=== PATIENT | male | born 1990 | race American Indian/Alaskan Native ===

== ENCOUNTER 2021-09-23 03:55 | Emergency (ER) | payer SELFPAY ==
[2021-09-23 03:59] VITALS: BP 137/96
--- NOTE | 2021-09-23 05:00 | Emergency Department Report ---
ED General Adult HPI - General Chief complaint: Medical Clearance Stated complaint: MED REFILL Time Seen by Provider: 09/23/21 04:55 Source: patient Mode of arrival: Ambulatory Limitations: No Limitations - History of Present Illness Initial comments: Patient is a 31-year-old -[place] male with history of epilepsy who presents for medication refill for Depakote. Last dose was 2 days ago. Patient denies fevers or chills no nausea no vomiting no aura. Patient is alert oriented x3 patient is tolerating p.o. intake patient appears well well-no urished well-hydrated with no acute distress. Patient denies other complaint. Patient states he recently moved from [place] 2 weeks ago and he ran out of his medication 2 days ago. - Related Data Previous Rx's Medication Instructions Recorded Last Taken Type Divalproex ER [Depakote ER] 500 mg PO BID #60 tablet 09/23/21 Unknown Rx Allergies Allergy/AdvReac Type Severity Reaction Status Date / Time No Known Allergies Allergy Unverified 09/23/21 03:59 ED Review of Systems ROS: Stated complaint: MED REFILL Other details as noted in HPI Constitutional: denies: chills, fever Eyes: denies: eye pain, eye discharge, vision change ENT: denies: ear pain, throat pain Respiratory: denies: cough, shortness of breath, wheezing Cardiovascular: denies: chest pain, palpitations Endocrine: no symptoms reported Gastrointestinal: denies: abdominal pain, nausea, diarrhea Genitourinary: denies: urgency, dysuria Musculoskeletal: denies: back pain, joint swelling, arthralgia Skin: denies: rash, lesions Neurological: denies: headache, weakness, paresthesias Psychiatric: denies: anxiety, depression Hematological/Lymphatic: denies: easy bleeding, easy bruising ED Past Medical Hx - Past Medical History Previous Medical History?: Yes Hx Seizures: Yes - Surgical History Past Surgical History?: No - Medications Home Medications: Home Medications Medication Instructions Recorded Confirmed Last Taken Type Divalproex ER [Depakote ER] 500 mg PO BID #60 tablet 09/23/21 Unknown Rx ED Physical Exam - General Limitations: No Limitations General appearance: alert, in no apparent distress - Head Head exam: Present: atraumatic, normocephalic - Eye Eye exam: Present: normal appearance, PERRL - ENT ENT exam: Present: mucous membranes moist - Neck Neck exam: Present: normal inspection - Respiratory Respiratory exam: Present: normal lung sounds bilaterally. Absent: wheezes - Cardiovascular Cardiovascular Exam: Present: regular rate, normal rhythm. Absent: systolic murmur, diastolic murmur, rubs, gallop - GI/Abdominal GI/Abdominal exam: Present: soft, normal bowel sounds. Absent: distended, tenderness - Rectal Rectal exam: Present: deferred - Extremities Exam Extremities exam: Present: normal inspection, full ROM. Absent: tenderness - Back Exam Back exam: Present: normal inspection, full ROM. Absent: CVA tenderness (R), CVA tenderness (L) - Neurological Exam Neurological exam: Present: alert, oriented X3, CN II-XII intact, normal gait, reflexes normal. Absent: motor sensory deficit - Expanded Neurological Exam Expanded Patient oriented to: Present: person, place, time Speech: Present: fluid speech Cranial nerves: EOM's Intact: Normal Cerebellar function: Finger to Nose: Normal, Heel to Bell: Normal, Romberg: Normal Motor strength exam: RUE: 5, LUE: 5, RLE: 5, LLE: 5 Best Eye Response ([place]): (4) open spontaneously Best Motor Response ([place]): (6) obeys commands Best Verbal Response (Cathleen): (5) oriented Cathleen Total: 15 - Psychiatric Psychiatric exam: Present: normal affect, normal mood - Skin Skin exam: Present: warm, dry, intact, normal color. Absent: rash ED Course Vital Signs 09/23/21 03:58 Temperature 98 F Pulse Rate 71 Respiratory 18 Rate Blood Pressure 137/96 [Right] O2 Sat by Pulse 100 Oximetry ED Medical Decision Making - Medical Decision Making Patient request medication refill and referral to primary care. Plan refill medication as prescribed patient has previous prescription bottle. Patient will follow up with primary care doctor in 2 to 3 days. Patient will return to emergency department as needed. Patient DC to home in stable condition at this time with no acute distress. Critical care attestation.: If time is entered above; I have spent that time in minutes in the direct care of this critically ill patient, excluding procedure time. ED Disposition Clinical Impression: Medication refill Disposition: 01 HOME / SELF CARE / HOMELESS Is pt being admited?: No Does the pt Need Aspirin: No Condition: Stable Instructions: Epilepsy, [id number], Epilepsy Additional Instructions: Take medications as prescribed, follow-up with your doctor in 2 to 3 days. Prescriptions: Divalproex ER [Depakote ER] 500 mg PO BID #60 tablet Referrals: JUSTIN GAMA MD [Staff Physician] - 3-5 Days Forms: Work/School Release Form(ED) Time of Disposition: 05:03
== END 2021-09-23 06:05 | disposition home or self-care (01) ==
LOC: ED 03:55
DX: G40.909 Epilepsy, unspecified, not intractable, without status epilepticus (principal); Z76.0 Encounter for issue of repeat prescription
CPT/HCPCS: 99282

== ENCOUNTER → 2021-11-02 | Emergency (ER) | payer SELFPAY | LOC: ED 02:52 | DX: Z76.0 Encounter for issue of repeat prescription (principal); Z53.21 Procedure and treatment not carried out due to patient leaving prior to being seen by health care provider ==

== ENCOUNTER 2021-12-09 17:02 | Emergency (ER) | payer SELFPAY ==
[2021-12-09 17:38] VITALS: BP 142/88
--- NOTE | 2021-12-09 18:37 | Emergency Department Report ---
ED General Adult HPI - General Chief complaint: Medical Clearance Stated complaint: MEDICATION REFILL Source: patient Mode of arrival: Ambulatory Limitations: No Limitations - History of Present Illness Initial comments: 31-year-old male presents to the ED questing a refill for medication for seizure. Patient states that he has been out of divalproex er 500mg Bid for two days . Patients denies any seizure activity at present. Patient states that her just receive new insurance and will make appointment with primary care doctor as soon as possible. Patient is alert and oriented x3. No acute distress noted. No ill appearance noted. - Related Data Previous Rx's Medication Instructions Recorded Last Taken Type Divalproex ER [Depakote ER] 500 mg PO BID #60 tablet 09/23/21 Unknown Rx Divalproex ER [Depakote ER] 500 mg PO BID 30 Days #60 tablet 12/09/21 Unknown Rx Allergies Allergy/AdvReac Type Severity Reaction Status Date / Time No Known Allergies Allergy Verified 12/09/21 17:38 ED Review of Systems ROS: Stated complaint: MEDICATION REFILL Other details as noted in HPI Constitutional: denies: chills, fever Eyes: denies: eye pain, eye discharge, vision change ENT: denies: ear pain, throat pain Respiratory: denies: cough, shortness of breath, wheezing Cardiovascular: denies: chest pain, palpitations Endocrine: no symptoms reported Gastrointestinal: denies: abdominal pain, nausea, diarrhea Genitourinary: denies: urgency, dysuria Musculoskeletal: denies: back pain, joint swelling, arthralgia Skin: denies: rash, lesions Neurological: denies: headache, weakness, paresthesias Psychiatric: denies: anxiety, depression Hematological/Lymphatic: denies: easy bleeding, easy bruising ED Past Medical Hx - Past Medical History Previous Medical History?: Yes Hx Seizures: Yes - Medications Home Medications: Home Medications Medication Instructions Recorded Confirmed Last Taken Type Divalproex ER [Depakote ER] 500 mg PO BID #60 tablet 09/23/21 Unknown Rx Divalproex ER [Depakote ER] 500 mg PO BID 30 Days #60 tablet 12/09/21 Unknown Rx ED Physical Exam - General Limitations: No Limitations General appearance: alert, in no apparent distress - Head Head exam: Present: atraumatic, normocephalic - Eye Eye exam: Present: normal appearance - ENT ENT exam: Present: mucous membranes moist - Neck Neck exam: Present: normal inspection - Respiratory Respiratory exam: Present: normal lung sounds bilaterally. Absent: respiratory distress - Cardiovascular Cardiovascular Exam: Present: regular rate, normal rhythm. Absent: systolic murmur, diastolic murmur, rubs, gallop - GI/Abdominal GI/Abdominal exam: Present: soft, normal bowel sounds - Rectal Rectal exam: Present: deferred - Extremities Exam Extremities exam: Present: normal inspection - Back Exam Back exam: Present: normal inspection - Neurological Exam Neurological exam: Present: alert, oriented X3 - Psychiatric Psychiatric exam: Present: normal affect, normal mood - Skin Skin exam: Present: warm, dry, intact, normal color. Absent: rash ED Course Vital Signs 12/09/21 17:36 Temperature 98.0 F Pulse Rate 59 L Respiratory 18 Rate Blood Pressure 142/88 O2 Sat by Pulse 98 Oximetry ED Medical Decision Making - Medical Decision Making 31-year-old male presents to the ED questing a refill for medication for seizure. Patient states that he has been out of divalproex er 500mg Bid for two days . Patients denies any seizure activity at present. Patient states that her just receive new insurance and will make appointment with primary care doctor as soon as possible. Patient is alert and oriented x3. No acute distress noted. No ill appearance noted. Rechecked the patient is resting quietly quietly and comfortable and feeling better. I discussed the results of diagnostic study, my clinical impression and the plan for further treatment with the patient. Patient agrees with plan and discharge at this present time. All question addressed. I have given the patient instruction regarding a diagnosis ,expectation ,follow- up and return precaution. I explained to the patient that emergent condition may arise and to return to the ED for new worsen and any new persisting condition. I have explained the importance of following up with the primary care physician or referral physician listed below has instructed. The patient verbalized understanding of discharge instruction. Critical care attestation.: If time is entered above; I have spent that time in minutes in the direct care of this critically ill patient, excluding procedure time. ED Disposition Clinical Impression: Medication refill, Normal physical examination Disposition: HOME / SELF CARE / HOMELESS Is pt being admited?: No Does the pt Need Aspirin: No Condition: Stable Instructions: Epilepsy Additional Instructions: Take medication as prescribed Follow-up with primary care doctor Prescriptions: Divalproex ER [Depakote ER] 500 mg PO BID 30 Days #60 tablet Referrals: [facility] [Provider Group] - 3-5 Days Forms: Work/School Release Form(ED)
== END 2021-12-09 19:40 | disposition home or self-care (01) ==
LOC: ED 17:02
DX: Z00.00 Encounter for general adult medical examination without abnormal findings (principal); Z76.0 Encounter for issue of repeat prescription; Z79.899 Other long term (current) drug therapy
CPT/HCPCS: 99282

== ENCOUNTER 2022-02-15 12:37 | Emergency (ER) | payer OTHER ==
--- NOTE | 2022-02-15 14:53 | Emergency Department Report ---
HPI - General Chief Complaint: Medical Clearance PUI?: No Time Seen by Provider: 02/15/22 14:49 - HPI HPI: 32-year-old -[place] male presents to the emergency room requesting a refill on his Depakote. Patient states he is making appointment to his neurologist for refills. Denies any recent seizure activity in over a year. ED Past Medical Hx - Past Medical History Previous Medical History?: Yes Hx Seizures: Yes Additional medical history: epilepsy - Medications Home Medications: Home Medications Medication Instructions Recorded Confirmed Last Taken Type Divalproex ER [Depakote ER] 500 mg PO BID 30 Days #60 tablet 12/09/21 Unknown Rx Divalproex ER [Depakote ER] 500 mg PO BID #60 tablet 02/15/22 Unknown Rx ED Review of Systems ROS: Stated complaint: MEDS Other details as noted in HPI Comment: All other systems reviewed and negative Physical Exam - Physical Exam Vital Signs: Vital Signs 02/15/22 13:48 Temperature 97.6 F Pulse Rate 56 L Respiratory 18 Rate Blood Pressure 136/92 O2 Sat by Pulse 100 Oximetry Physical Exam: General: Awake, appropriately interactive, no acute distress. Neck: Supple. Full range of motion intact. Cardiovascular: Normal peripheral perfusion. Pulmonary: No respiratory distress. Patient is speaking normally without use of accessory muscles. Skin: No apparent rashes or lesions. Neurological: No facial asymmetry. Speech is clear. Follows commands. Patient is alert and oriented. Musculoskeletal: Full range of motion, no crepitus. Able to bear weight and ambulate without difficulty. Distal neurovascular and motor/sensory function is intact. Psych: Cooperative. Appropriate mood and affect. ED Course Vital Signs 02/15/22 13:48 Temperature 97.6 F Pulse Rate 56 L Respiratory 18 Rate Blood Pressure 136/92 O2 Sat by Pulse 100 Oximetry ED Medical Decision Making - Medical Decision Making 32-year-old -[place] male presents to the emergency room requesting a refill on his Depakote. Patient states he is making appointment to his neurologist for refills. Denies any recent seizure activity in over a year. Prescription for Depakote extended release 500 mg 2 tablets p.o. twice daily. Critical care attestation.: If time is entered above; I have spent that time in minutes in the direct care of this critically ill patient, excluding procedure time. ED Disposition Clinical Impression: Medication refill Disposition: HOME / SELF CARE / HOMELESS Is pt being admited?: No Does the pt Need Aspirin: No Condition: Stable Additional Instructions: Please take medication as prescribed. Is very important you follow-up with your neurologist. As they are the ones who should be refilling your medications so they are able to evaluate your seizures. Prescriptions: Divalproex ER [Depakote ER] 500 mg PO BID #60 tablet Time of Disposition: 14:51
[2022-02-15 15:06] VITALS: BP 138/78
== END 2022-02-15 15:23 | disposition home or self-care (01) ==
LOC: ED 12:37
DX: G40.909 Epilepsy, unspecified, not intractable, without status epilepticus (principal); Z76.0 Encounter for issue of repeat prescription
CPT/HCPCS: 99282